=== PATIENT | male | born 1995 | race Caucasian/White ===

== ENCOUNTER 2017-12-18 18:21 | Emergency (ER) | payer SELFPAY ==
[2017-12-18 18:40] VITALS: BP 116/71; PULSE 87; RESP 16; TEMP 36.7; O2SAT 96
--- NOTE | 2017-12-18 19:39 | ED.GENADUL_ITS ---
Disposition Clinical Impression: Thumb laceration Disposition: HOME Condition: Fair Instructions: Laceration (ED), Skin Adhesive Care (ED) Additional Instructions: Keep wound clean, dry, covered. You may wash with running water but do not soak or submerge this may increase her risk of infection. Monitor wound for signs of infection including redness, warmth, drainage, increased pain, fever/ chills. If you develop fevers or other new/worsening symptoms please seek care urgently once again. These allow adhesive to come off naturally do not apply any ointment over this as it may cause premature breakdown. Allow adhesive to come off naturally, do not pick or pull at this. Follow-up with primary care as needed. Referrals: Emmanuel Sawyer [Primary Care Provider] - Medical Decision Making - Medical Decision Making Patient presents today with chief complaint of left thumb laceration. Patient reports that he cut himself while opening a can. Patient is up-to-date on immunizations. Wound is very superficial. It does bleed when I forcefully open it. Otherwise, the tissues overlying approximated and appear closed well. I do not feel that suture closure is appropriate for this wound. Patient is having exquisite discomfort with palpation. We discussed risks and benefits of closure with adhesive. I feel this will also help with his discomfort Will hold the wound in a closed position. We discussed risk/benefits as well as expected procedural steps. He voiced understanding and wishes to proceed. Procedure note: Initially, I attempted to clean a superficial wound with sterile saline without anesthetic. However, he was unable to tolerate this. LET was then applied and allowed to set over the wound for 10 minutes. This helped both with bleeding and discomfort. A finger tourniquet was used to allow for me to clean the wound with a bloodless field. Wound is explored to base in bloodless field. It is quite superficial. Wound edges lie in approximated fashion without any assistance. After the wound was copiously irrigated, a thin layer of adhesive was applied over the wound. Patient tolerated procedure well. Patient I discussed wound care in depth. Advised to keep this clean, dry, covered. We discussed the signs symptoms of infection when to seek care urgently once again. We discussed care of adhesive. All of his questions and concerns were addressed and he is in agreement with this plan. History of Present Illness - General Chief complaint: Laceration Stated complaint: LEFT THUMB LACERATION Time Seen by Provider: 12/18/17 18:26 Source: patient, RN notes reviewed Mode of arrival: ambulatory Limitations: no limitations - History of Present Illness Initial comments: Patient is a 22-year-old [id number] male presenting today with chief complaint laceration to the dorsal aspect of his left thumb. He reports prior to arrival, while at home during dinner, he cut his hand on a can of beans. Last tetanus was in 2014. He reports that that he is having exquisite discomfort comfort. Finds that he is able to stop the bleeding if he applies pressure but that with mobility of the thumb he begins bleeding again. Denies any fevers or chills. Reports that this happened just prior to arrival. Denies other injury the time of the incident. - Related Data Unknown [No Known Home Meds] 12/18/17 Allergies Allergy/AdvReac Type Severity Reaction Status Date / Time No Known Allergies Allergy Unverified 12/18/17 18:41 Review of Systems Constitutional: no symptoms reported. denies: chills, fever Respiratory: no symptoms reported Musculoskeletal: as per HPI Skin: as per HPI Neurological: denies: numbness, paresthesias Past Medical History - Past Medical History Medical history: no medical history Surgical history: non-contributory - Social History Alcohol use: occasionally Drug use: marijuana General Exam - General Limitations: no limitations General appearance: alert, in no apparent distress - Eye Eye exam: Present: normal apperance - Respiratory Respiratory exam: Absent: respiratory distress - Extremities Exam Extremities exam: Present: full ROM, tenderness, normal capillary refill. Absent: normal inspection (Exam of the patient's left upper extremity is significant for a superficial 8 mm laceration running across the tip of the left thumb. Sensation is intact. When patient is not palpating the wound is lying in a closed position with wound edges reapproximated. Am able to open this slightly but wound is still very superficial. With opening there is a small amount of bleeding still. No discoloration to the surrounding skin. No swelling. Full range of motion.), joint swelling - Neurological Exam Neurological exam: Present: alert, normal gait - Psychiatric Psychiatric exam: Present: normal affect, normal mood - Skin Skin exam: Absent: intact (As above) Course Vital Signs - 24 hr 12/18/17 18:40 Temperature 36.7 C Pulse 87 Respiratory 16 Rate Blood Pressure 116/71 Pulse Oximetry 96
== END 2017-12-18 19:44 | disposition home or self-care (01) ==
LOC: ER 06-10 01:37
PROVIDERS: Emergency Provider Emergency Medicine; PCP Family Medicine
DX: S61.012A Laceration without foreign body of left thumb without damage to nail, initial encounter (principal); W26.8XXA Contact with other sharp object(s), not elsewhere classified, initial encounter; Y93.G1 Activity, food preparation and clean up
CPT/HCPCS: 12001